=== PATIENT | female | born 1955 | race Caucasian/White ===

== ENCOUNTER 2019-01-21 21:33 | Emergency (ER) | payer BC ==
[2019-01-21] MEDS ORDERED: IPRATRPIUM/ALBUTEROL 0.5/2.5MG 3 ML NEBU. ONE (21:47)
[2019-01-21] MEDS ORDERED: ALBUTEROL SULFATE 2.5 MG/3 ML NEBU. ONE (22:01)
[2019-01-21 22:16] LABS: BASO # 0.1 x10^3/uL (0.0-0.2); BASO % 1 % (0-3); EOS # 0.1 x10^3/uL (0.0-0.7); EOS % 1 % (0-3); HEMATOCRIT 43.8 % (36.0-47.0); HEMOGLOBIN 13.8 g/dL (12.0-15.5); LYMPH # 5.7 x10^3/uL (1.0-4.8); LYMPH % 56 % (24-48); MEAN CORPUSCULAR HEMOGLOBIN 31 pg (25-35); MEAN CORPUSCULAR HGB CONC 32 g/dL (31-37); MEAN CORPUSCULAR VOLUME 97 fL (79-100); MONO # 0.6 x10^3/uL (0.0-1.1); MONO % 6 % (0-9); NEUT # 3.7 x10^3uL (1.8-7.7); NEUT % 37 % (31-73); PLATELET COUNT 217 x10^3/uL (140-400); RED BLOOD COUNT 4.52 x10^6/uL (3.50-5.40); RED CELL DISTRIBUTION WIDTH 14.8 % (11.5-14.5); WHITE BLOOD COUNT 10.2 x10^3/uL (4.0-11.0)
[2019-01-21 22:31] LABS: ALBUMIN 3.7 g/dL (3.4-5.0); ALBUMIN/GLOBULIN RATIO 0.9 (1.0-1.7); CALCIUM 8.3 mg/dL (8.5-10.1); CREATININE 1.1 mg/dL (0.6-1.0); GFR 50.3; POTASSIUM 4.3 mmol/L (3.5-5.1); TOTAL BILIRUBIN 0.2 mg/dL (0.2-1.0); TOTAL PROTEIN 7.7 g/dL (6.4-8.2)
[2019-01-21] MEDS ORDERED: IV NORMAL SALINE 500ML 500 ML IV ONE (23:00)
[2019-01-21] MEDS ORDERED: methylPREDNISolone SOD SUCC PF 125 MG/2 ML VIAL. IV ONE (23:00)
[2019-01-21] MEDS ORDERED: IPRATRPIUM/ALBUTEROL 0.5/2.5MG 3 ML NEBU. NEB ONE (23:00)
[2019-01-21] MEDS ORDERED: ASPIRIN 81 MG TAB.CHEW PO ONE (23:00)
[2019-01-21] MEDS ORDERED: FUROSEMIDE 40 MG/4 ML VIAL IVP ONE (23:00)
[2019-01-21] MEDS ORDERED: ENOXAPARIN 40 MG/0.4 ML SYRINGE. SQ ONE (23:45)
[2019-01-21] MEDS ORDERED: IOHEXOL 350 MG/ML 100 ML VIAL. IV ONE (23:45)
[2019-01-21] MEDS ORDERED: CONTRAST GIVEN MC PRN (23:45)
[2019-01-21 23:49] LABS: BGAS PH 7.19 (7.35-7.45)
--- NOTE | 2019-01-22 00:20 | PHYS DOC ---
Past History Past Medical History: No Pertinent History Past Surgical History: Other Alcohol Use: None Drug Use: None Adult General Chief Complaint Chief Complaint: SHORTNESS OF BREATH HPI HPI Patient is a 63-year-old female presents with shortness of breath that began approximately 2 hours prior to arrival. This happened shortly after eating. She has no previous history of breathing issues. She has not seen a doctor for years. She denies any chest pain. She was brought in by EMS and given a DuoNeb in route. She does smoke over a pack of cigarettes per day[] Review of Systems Review of Systems Constitutional: Denies fever or chills [] Eyes: Denies change in visual acuity, redness, or eye pain [] HENT: Denies nasal congestion or sore throat [] Respiratory: History of present illness[] Cardiovascular: No chest pain or palpitations[] GI: Denies abdominal pain, nausea, vomiting, bloody stools or diarrhea [] : Denies dysuria or hematuria [] Musculoskeletal: Denies back pain or joint pain [] Integument: Denies rash or skin lesions [] Neurologic: Denies headache, focal weakness or sensory changes [] Endocrine: Denies polyuria or polydipsia [] All other systems were reviewed and found to be within normal limits, except as documented in this note. Current Medications Current Medications Current Medications Medications (Trade) Dose Ordered Sig/Rani Start Time Stop Time Status Last Admin Dose Admin Albuterol Sulfate (Ventolin) 2.5 mg STK-MED ONCE 01/21/19 22:01 01/21/19 22:01 DC Albuterol/ Ipratropium (Duoneb) 3 ml 1X ONCE 01/21/19 23:00 01/21/19 23:01 DC 01/21/19 23:52 3 ML Aspirin (Children'S Aspirin) 324 mg 1X ONCE 01/21/19 23:00 01/21/19 23:01 DC 01/21/19 22:48 324 MG Enoxaparin Sodium (Lovenox 40mg Syringe) 40 mg 1X ONCE 01/21/19 23:45 01/21/19 23:46 DC Furosemide (Lasix) 40 mg 1X ONCE 01/21/19 23:00 01/21/19 23:01 DC 01/21/19 22:47 40 MG Info (Do NOT chart on this entry -- for MONITORING) 1 each PRN DAILY PRN 01/21/19 23:45 01/23/19 23:44 Iohexol (Omnipaque 350 Mg/ml) 100 ml 1X ONCE 01/21/19 23:45 01/21/19 23:46 DC 01/21/19 23:49 100 ML Methylprednisolone Sodium Succinate (SOLU-Medrol 125MG VIAL) 125 mg 1X ONCE 01/21/19 23:00 01/21/19 23:01 DC 01/21/19 22:46 125 MG Sodium Chloride 500 ml @ 0 mls/hr 1X ONCE 01/21/19 23:00 01/21/19 23:26 DC Allergies Allergies Allergies Coded Allergies Type Severity Reaction Last Updated Verified No Known Drug Allergies 01/21/19 No Physical Exam Physical Exam Constitutional: Well developed, well nourished, moderate distress, ill appearance. [] HENT: Normocephalic, atraumatic, bilateral external ears normal, oropharynx moist, no oral exudates, nose normal. [] Eyes: PERRLA, EOMI, conjunctiva normal, no discharge. [] Neck: Normal range of motion, no tenderness, supple, no stridor. [] Cardiovascular:Heart rate is tachycardic with a regular rhythm, no murmur [] Lungs & Thorax: Decreased breath sounds bilaterally with increased work of breathing[] Abdomen: Bowel sounds normal, soft, no tenderness, no masses, no pulsatile masses. [] Skin: Warm, dry, no erythema, no rash. [] Back: No tenderness, no CVA tenderness. [] Extremities: No tenderness, no cyanosis, no clubbing, ROM intact, no edema. [] Neurologic: Alert and oriented X 3, normal motor function, normal sensory function, no focal deficits noted. [] Psychologic: Affect normal, judgement normal, mood normal. [] Current Patient Data Vital Signs Vital Signs Date Time Temp Pulse Resp B/P (MAP) Pulse Ox O2 Delivery O2 Flow Rate FiO2 01/21/19 23:00 94 01/21/19 22:00 BiPAP/CPAP 01/21/19 21:37 98.3 142 29 3.0 Lab Results Laboratory Tests Test 01/21/19 21:48 01/21/19 22:45 White Blood Count 10.2 x10^3/uL (4.0-11.0) Red Blood Count 4.52 x10^6/uL (3.50-5.40) Hemoglobin 13.8 g/dL (12.0-15.5) Hematocrit 43.8 % (36.0-47.0) Mean Corpuscular Volume 97 fL (79-100) Mean Corpuscular Hemoglobin 31 pg (25-35) Mean Corpuscular Hemoglobin Concent 32 g/dL (31-37) Red Cell Distribution Width 14.8 % (11.5-14.5) H Platelet Count 217 x10^3/uL (140-400) Neutrophils (%) (Auto) 37 % (31-73) Lymphocytes (%) (Auto) 56 % (24-48) H Monocytes (%) (Auto) 6 % (0-9) Eosinophils (%) (Auto) 1 % (0-3) Basophils (%) (Auto) 1 % (0-3) Neutrophils # (Auto) 3.7 x10^3uL (1.8-7.7) Lymphocytes # (Auto) 5.7 x10^3/uL (1.0-4.8) H Monocytes # (Auto) 0.6 x10^3/uL (0.0-1.1) Eosinophils # (Auto) 0.1 x10^3/uL (0.0-0.7) Basophils # (Auto) 0.1 x10^3/uL (0.0-0.2) D-Dimer (Maritza) 1.08 mg/L (0.00-0.50) H Sodium Level 141 mmol/L (136-145) Potassium Level 4.3 mmol/L (3.5-5.1) Chloride Level 103 mmol/L (98-107) Carbon Dioxide Level 26 mmol/L (21-32) Anion Gap 12 (6-14) Blood Urea Nitrogen 8 mg/dL (7-20) Creatinine 1.1 mg/dL (0.6-1.0) H Estimated GFR (Cockcroft-Gault) 50.3 BUN/Creatinine Ratio 7 (6-20) Glucose Level 263 mg/dL (70-99) H Lactic Acid Level 4.4 mmol/L (0.4-2.0) *H Calcium Level 8.3 mg/dL (8.5-10.1) L Total Bilirubin 0.2 mg/dL (0.2-1.0) Aspartate Amino Transferase (AST) 43 U/L (15-37) H Alanine Aminotransferase (ALT) 28 U/L (14-59) Alkaline Phosphatase 114 U/L (46-116) Troponin I Quantitative 0.154 ng/mL (0-0.055) H XJ-Ure-O-Type Natriuretic Peptide 12051 pg/mL (0-124) H Total Protein 7.7 g/dL (6.4-8.2) Albumin 3.7 g/dL (3.4-5.0) Albumin/Globulin Ratio 0.9 (1.0-1.7) L Blood pH 7.19 (7.35-7.45) *L Blood Gas PCO2 69 mmHg (35-45) *H Blood Gas PO2 103 mmHg (80-100) H Blood Gas HCO3 26 mmol/L (22-26) Arterial Bld O2 Saturation (Calc) 96 % (92-99) FiO2 65 % EKG EKG EKG shows a sinus tachycardia at 143 bpm, normal axis, QTC of 441 ms, no ST elevations. No old EKG available for comparison. Interpreted by me at 2145.[] Radiology/Procedures Radiology/Procedures Chest x-ray shows diffuse increased markings, no effusion, no focal infiltrate, no pneumothorax[] Course & Med Decision Making Course & Med Decision Making Pertinent Labs and Imaging studies reviewed. (See chart for details) ED course: Patient arrived, was placed in bed, and tolerated exam well. BiPAP and continuous nebulizer therapy for an hour were started. Aspirin was given, IV access was established. Medications were also administered. After the return of lab and imaging studies, consultation was made initially with hospitalist here at [facility]. Due to needing higher level of care such is the ICU and pulmonary resources that are not available, was elected to transfer her. Dr. Dang kindly accepted the patient for transfer to [facility] to the ICU. Due to elevated d-dimer and concern for possible PE, patient was sent to and from CT with any complications. At the time of this dictation CT results are pending. Patient has been given Lovenox due to concern for possible PE given the constellation of findings and the sudden onset of the difficulty breathing. Medical decision making: Patient has a mixed picture triggering her difficulty breathing. She has elements of emphysema with CO2 retention, she also has evidence of congestive heart failure with the elevated BNP as well as the elevated troponin. This does not appear to be an acute ST elevation [place]. D-dimer is elevated and so possibility of PE exists. She is being transferred for higher level of care.[] Dragon Disclaimer Dragon Disclaimer This electronic medical record was generated, in whole or in part, using a voice recognition dictation system. Departure Departure: Impression: Primary Impression: Shortness of breath Additional Impressions: Chronic obstructive pulmonary disease Congestive heart failure Non-STEMI (non-ST elevated myocardial infarction) Disposition: 05 TRANSFER OTHER Condition: IMPROVED Referrals: PCP,NO (PCP) Problem Qualifiers Additional Impressions: Chronic obstructive pulmonary disease COPD type: unspecified COPD Qualified Codes: J44.9 - Chronic obstructive pulmonary disease, unspecified Congestive heart failure Heart failure type: unspecified Heart failure chronicity: acute Qualified Codes: I50.9 - Heart failure, unspecified CONRAD BYRNE DO Jan 22, 2019 00:20
[2019-01-22 00:34] VITALS: BP 167/90
--- NOTE | 2019-01-22 00:47 | RAD ---
CT arteriogram of the chest. HISTORY: Short of air, elevated d-dimer CT arteriogram was done using 60 mL Omnipaque 350 contrast. Coronal MIP images were reconstructed. Study is negative for evidence of a pulmonary embolus. There are small bilateral effusions. Visualized portions of liver and spleen are unremarkable. Adrenal glands are normal. There is diffuse interstitial lung disease. There are changes of chronic obstructive pulmonary disease. There is bilateral peribronchial thickening. There is thickening of interlobular septa. There are mild consolidating infiltrates in the lower lobes. Pulmonary edema superimposed on COPD is possible, an interstitial pneumonia would be possible. There is no mediastinal adenopathy. IMPRESSION: 1. COPD. 2. Peribronchial thickening bilaterally. 3. Diffuse interstitial lung disease from an interstitial infiltrative process or pulmonary edema. 4. Alveolar infiltrates in the lung bases which can be related to pneumonia or pulmonary edema. 5. Negative for a pulmonary embolus. PQRS Compliance Statement: One or more of the following individualized dose reduction techniques were utilized for this examination: 1. Automated exposure control 2. Adjustment of the mA and/or kV according to patient size 3. Use of iterative reconstruction technique Electronically signed by: Brannon Smart MD (01/22/2019 12:44 AM) [facility]
--- NOTE | 2019-01-22 04:34 | RAD ---
AP chest. HISTORY: Short of breath AP view was taken of the chest. There are changes of chronic obstructive pulmonary disease. Heart is within normal limits. There are diffuse interstitial infiltrates or interstitial edema. There are mild alveolar infiltrates or edema in the lung bases. There is no old study for comparison. IMPRESSION: 1. Diffuse interstitial and alveolar infiltrates or pulmonary edema. Electronically signed by: Brannon Smart MD (01/22/2019 4:31 AM) [facility]
--- NOTE | 2019-01-22 14:39 | EKG ---
[address] [address] Test Date: 2019-01-21 Test Time: 21:46:42 Pat Name: GERI ROSAS Department: Room: Gender: F Chemical Process Engineer: : [id number] Requested By: CONRAD BYRNE Order Number: [id number] Reading MD: Measurements Intervals [place] Rate: 143 P: 176 [place]: 84 QRS: 72 QRSD: 90 T: 20 QT: 282 QTc: 441 Interpretive Statements SINUS TACHYCARDIA VENTRICULAR PREMATURE COMPLEX(ES) T ABNORMALITY IN INFEROLATERAL LEADS ABNORMAL ECG RI6.01 No previous ECG available for comparison
== END 2019-01-22 00:58 | disposition short-term general hospital (02) ==
LOC: ER 21:33
DX: I21.4 Non-ST elevation (NSTEMI) myocardial infarction (principal); J44.9 Chronic obstructive pulmonary disease, unspecified; I50.9 Heart failure, unspecified
CPT/HCPCS: 36415; 36600; 71045; 71275; 80053; 82803; 83605; 83880; 84484; 85025; 85379; 87040; 93005; 94644; 94660; 96372; 96374; 96375; 99285; J1650; J1940; J2930; J7620; Q9967; 94640

== ENCOUNTER → 2019-05-03 | Outpatient (CLI) | payer BC ==
--- NOTE | 2019-05-03 17:27 | RAD ---
CT CHEST WO CONTRAST Indication: Interstitial lung disease. Smoker for 30 years. Exposure: One or more of the following individualized dose reduction techniques were utilized for this examination: 1. Automated exposure control 2. Adjustment of the mA and/or kV according to patient size 3. Use of iterative reconstruction technique. Technique: Standard imaging without intravenous contrast. Comparison: CTA chest 01/21/2019. FINDINGS: Thyroid gland demonstrates no dominant mass. No significant lymph node enlargement. Coronary artery calcifications. No significant pericardial effusion. Esophagus not distended. Aorta calcified, ascending aorta measures 3.6 cm transverse compatible with ectasia, milder similar to previous. No descending aortic aneurysm. Left upper lobe pulmonary nodule anteriorly measures about 3 mm, unchanged, series 2, image 55. Left lower lobe nodule, located along the major fissure, measures 9 mm diameter, has not progressed since prior study, series 2, image 64. Nodule in the right upper lobe measures 6 mm, has not increased since the prior study. Series 2, image 38. Posterior left upper lobe nodule along the fissure measures 5 mm, similar prior study. Previously seen interstitial opacities and interlobular septal thickening has substantially improved since the prior study. Mild residual interstitial prominence is identified. No focal airspace consolidation has developed. Trachea and major bronchi are patent. No evidence of pneumothorax. Degenerative spondylosis of the spine. No evidence of aggressive bone destruction. Scans the upper abdomen are limited by technique, there may be a tiny nonobstructive right renal calculus. IMPRESSION: 1. Multiple small bilateral pulmonary nodules measuring up to 9 mm in diameter. These appear overall stable since previous exam, as per revised Fleischner guidelines, recommend in 3-6 months. 2. Substantial improvement in previously seen interstitial opacities and interlobular septal thickening. Mild residual interstitial markings could represent background of chronic fibrosis or mild residual interstitial edema or infiltrate. Electronically signed by: Mike Forrest MD (05/03/2019 5:25 PM) [facility]
== END | disposition home or self-care (01) ==
LOC: CT 07:55
PROVIDERS: ATTEND Internal Medicine Critical Care Medicine
DX: J84.89 Other specified interstitial pulmonary diseases (principal); R91.8 Other nonspecific abnormal finding of lung field; I25.10 Atherosclerotic heart disease of native coronary artery without angina pectoris; I70.0 Atherosclerosis of aorta; J44.9 Chronic obstructive pulmonary disease, unspecified; F17.210 Nicotine dependence, cigarettes, uncomplicated
CPT/HCPCS: 71250

== ENCOUNTER → 2019-06-13 | Outpatient (CLI) | payer BC ==
[~2019-06-13] MED LIST: REGADENOSON 0.4 MG/5 ML DISP.SYRIN. IV ONE
--- NOTE | 2019-06-13 12:24 | RAD ---
MR#: [id number] Date of Study: 06/13/2019 Ordering Physician: GOKUL GREGG, Referring Physician: ANKIT VINCENT Tech: REBECCA Noel ARRT (Asya) (N) APPROVED REPORT Test Type: Pharmacological Stress Nurse/Tech: COLLEEN Rossi/MELVINA Noel Test Indications: ischemic cardiomyopathy Cardiac History: See Liquid Scenarios EMR NKDA Medications: See Electronic Medical Record Medical History: See Electronic Medical Record Resting ECG: SR Resting Heart Rate: 56 bpm Resting Blood Pressure: 146/64mmHg Pretest Chest Pain: None Nurse/Tech Notes order changed per Norah to [email or web address]. pt unable to obtain target HR on treadmill due to fatigue. SR, no significant, acute changes Consent: The procedure was explained to the patient in lay terms. Informed consent was witnessed. Chang eout was entered into [employer]. History and Stress Test performed by REBECCA Noel ARRT (R) (N) Pharm. Details Pharmacologic stress testing was performed using 0.4mg per 5ml of regadenoson given intravenously ove r 7-10 seconds. Stress Symptoms Dyspnea POST EXERCISE Reason for Termination: Infusion complete Target HR: No Max HR: 91 bpm 67% of Maximum Predicted HR: 134 bpm Exercise duration: 6 min:sec, Stage Max Blood Pressure: 155/57mmHg Chest Pain: No. Arrhythmia: No. ST Change: No. INTERPRETATION Stress EKG Conclusion: The resting EKG shows a sinus rhythm and nonspecific ST-T wave changes. The stress EKG showed mild further ST segment changes that are not diagnostic of ischemia. Baseline abnormal EKG but no clear evidence of stress-induced ischemia. Imaging Protocol IMAGE PROTOCOL: Rest Tc-99m/stress Tc-99m 1 day Rest: Stress: Viability: Radiopharm.Tc99m [id number] Sestamibi [id number] 33mCi Img Date 06/13/2019 06/13/2019 Inj-Img Yfts49tow. 45min. Rest Admin Site:IV - Right AntecubitalAdministrator: Xiomara Keys, NMTCB, ARRT (R)(N) Stress Admin Site: IV - Right AntecubitalAdministrator: REBECCA Noel, ARRT (R)(N) STRESS DATA End Diast. Vol.145.0mlAv. Heart Rate61.0bpm End Syst. Vol.57.0mlCO Index BSA0.0L/min Myocardial Oalm975.0gEject. Rwxmemzl21.0% Stress Rates Pk. Fill Rate1.96EDV/secLVtime Pk. Fill 289.90msec Pk. Empty Rate2.20ESV/secLVtime Pk. Pswcx218.38msec 05/24 Pk. Fill1.33EDV/sec Stress Scores Regional WT0.00Summed WT7.00 Regional WM0.00Summed WM10.00 LV Perfusion The stress images show a slight distal inferior septal defect. The rest images show a slight distal inferior septal defect Wall Motion Left ventricular ejection fraction is 55%. There is a slight wall motion abnormality in the inferior septal region LV Perf. Quant 17 Seg. SSS6.00 17 Seg. SRS9.00 17 Seg. SDS0.00 Stress Defect Extent (% LAD)18.10Rest Defect Extent (% LAD)29.40Rev. Defect Extent (% LAD)0.00 Stress Defect Extent (% LCX) 0.00Rest Defect Extent (% LCX)0.00Rev. Defect Extent (% LCX)0.00 Stress Defect Extent (% RCA)8.90Rest Defect Extent (% RCA)16.70Rev. Defect Extent (% RCA)0.00 Stress Defect Extent (% SAMANTHA)13.50Rest Defect Extent (% SAMANTHA)23.00Rev. Defect Extent (% SAMANTHA)0.00 Conclusion 1. No EKG evidence of stressed induced ischemia. 2. Nuclear imaging shows no significant reversible ischemia. 3. Nuclear imaging shows a fixed distal inferior septal defect which may represent a small previous i nfarct. 4. Left ventricular systolic function is 55% with slight inferior septal wall motion abnormality. 5. Moderately low risk Lexiscan nuclear stress test with no reversible ischemia and an ejection fract ion of 55%. Signed by : Kris Martin MD Electronically Approved : 06/13/2019 12:23:36
== END | disposition home or self-care (01) ==
LOC: NM 07:43
PROVIDERS: ATTEND Internal Medicine Cardiovascular Disease
DX: I25.5 Ischemic cardiomyopathy (principal)
CPT/HCPCS: 78452; 93017; A9500; J2785

== ENCOUNTER → 2019-06-13 | Outpatient (CLI) | payer BC ==
[2019-06-13 08:19] LABS: BASO % 1 % (0-3); EOS # 0.1 x10^3/uL (0.0-0.7); EOS % 2 % (0-3); HEMATOCRIT 35.4 % (36.0-47.0); HEMOGLOBIN 11.6 g/dL (12.0-15.5); LYMPH % 26 % (24-48); MEAN CORPUSCULAR HEMOGLOBIN 31 pg (25-35); MEAN CORPUSCULAR HGB CONC 33 g/dL (31-37); MEAN CORPUSCULAR VOLUME 93 fL (79-100); MONO # 0.4 x10^3/uL (0.0-1.1); MONO % 11 % (0-9); NEUT # 2.3 x10^3uL (1.8-7.7); NEUT % 60 % (31-73); PLATELET COUNT 165 x10^3/uL (140-400); RED CELL DISTRIBUTION WIDTH 14.3 % (11.5-14.5); WHITE BLOOD COUNT 3.9 x10^3/uL (4.0-11.0)
[2019-06-13 08:31] LABS: ALBUMIN 3.6 g/dL (3.4-5.0); ALBUMIN/GLOBULIN RATIO 1.1 (1.0-1.7); CALCIUM 8.3 mg/dL (8.5-10.1); CREATININE 0.7 mg/dL (0.6-1.0); GFR 84.8; POTASSIUM 4.8 mmol/L (3.5-5.1); TOTAL BILIRUBIN 0.4 mg/dL (0.2-1.0); TOTAL PROTEIN 6.8 g/dL (6.4-8.2)
== END | disposition home or self-care (01) ==
LOC: LAB 07:52
PROVIDERS: ATTEND Internal Medicine Cardiovascular Disease
DX: I25.10 Atherosclerotic heart disease of native coronary artery without angina pectoris (principal)
CPT/HCPCS: 36415; 80053; 83880; 85025